=== PATIENT | female | born 1985 | race Two or more races ===

== ENCOUNTER 2018-09-03 19:21 | Observation (INO) | payer OTHER, MEDICAID ==
[~2018-09-03] VITALS: Ht 180.3 cm; Wt 128.8 kg
[2018-09-03] MEDS ORDERED: PREN1TAB78 MT (20:30)
== END 2018-09-03 21:15 | disposition home or self-care (01) ==
LOC: 8 EST LDRP 19:21
PROVIDERS: ADMIT Obstetrics & Gynecology; ATTEND Obstetrics & Gynecology
DX: O46.92 Antepartum hemorrhage, unspecified, second trimester (principal); Z3A.24 24 weeks gestation of pregnancy
CPT/HCPCS: 99281; G0378